=== PATIENT | male | born 1970 ===

== ENCOUNTER 2017-09-27 19:58 | Emergency (ER) | payer OTHER ==
[2017-09-27 20:28] VITALS: BP 158/96; PULSE 93; RESP 16; TEMP 98.2; O2SAT 99
[2017-09-27] MEDS ORDERED: Sodium Chloride 0.9% 1,000 ML IV STA (21:58)
--- NOTE | 2017-09-27 22:02 | ED PDOC ---
HPI: Abdomen Time Seen by Provider: 09/27/17 21:36 Chief Complaint (Nursing): Abdominal Pain Chief Complaint (Provider): abdominal pain History Per: Patient History/Exam Limitations: no limitations Onset/Duration Of Symptoms: Days (2), Waxing/Waning Current Symptoms Are (Timing): Still Present Location Of Pain/Discomfort: LLQ Quality Of Discomfort: Sharp Associated Symptoms: Diarrhea Last Bowel Movement: Today Additional Complaint(s): 47 y/o male presents for evaluation of intermittent left lower abdominal pain x 2 days. Associated diarrhea, tactile fever (last dose of tylenol taken yesterday). Denies fever, nausea/vomiting, chest pain, shortness of breath, palpitatoins, urinary symptoms. Past Medical History Reviewed: Historical Data, Nursing Documentation, Vital Signs Vital Signs: Last Vital Signs Temp 98.2 F 09/27/17 20:25 Pulse 93 H 09/27/17 20:25 Resp 16 09/27/17 20:25 BP 158/96 H 09/27/17 20:25 Pulse Ox 99 09/27/17 22:02 - Medical History PMH: No Chronic Diseases - Surgical History Surgical History: No Surg Hx - Family History Family History: States: No Known Family Hx - Living Arrangements Living Arrangements: With Family - Home Medications Home Medications: Ambulatory Orders Medication Instructions Recorded Dicyclomine [Bentyl] 20 mg PO Q8 PRN #30 tab 06/01/16 Ciprofloxacin HCl [Cipro] 500 mg PO BID #19 tab 09/28/17 Metronidazole [Flagyl] 500 mg PO TID #29 tablet 09/28/17 - Allergies Allergies/Adverse Reactions: Allergies Allergy/AdvReac Type Severity Reaction Status Date / Time No Known Allergies Allergy Verified 06/01/16 12:42 Review of Systems ROS Statement: Except As Marked, All Systems Reviewed And Found Negative Gastrointestinal: Positive for: Abdominal Pain, Diarrhea Physical Exam - Reviewed Nursing Documentation Reviewed: Yes Vital Signs Reviewed: Yes - Physical Exam Appears: Positive for: Well, Non-toxic, No Acute Distress Head Exam: Positive for: ATRAUMATIC, NORMAL INSPECTION, NORMOCEPHALIC Skin: Positive for: Normal Color Eye Exam: Positive for: Normal appearance ENT: Positive for: Normal ENT Inspection Cardiovascular/Chest: Positive for: Regular Rate, Rhythm Respiratory: Positive for: Normal Breath Sounds Gastrointestinal/Abdominal: Positive for: Bowel Sounds, Soft, Tenderness (left lower abdomen) Back: Positive for: Normal Inspection Extremity: Positive for: Normal ROM Neurologic/Psych: Positive for: Alert, Oriented - Laboratory Results Result Diagrams: 09/27/17 22:30 09/27/17 22:30 - ECG O2 Sat by Pulse Oximetry: 99 - Progress ED Course And Treament: labs, urine, CT abd/pelvis, IV toradol EXAM: CT Abdomen and Pelvis With Intravenous Contrast CLINICAL HISTORY: 47 years old, male; Pain; Abdominal pain; Localized; Left lower quadrant (llq); Additional info: Llq pain, diarrhea TECHNIQUE: Axial computed tomography images of the abdomen and pelvis with intravenous contrast. All CT scans at this facility use one or more dose reduction techniques, viz.: automated exposure control; ma/kV adjustment per patient size (including targeted exams where dose is matched to indication; i.e. head); or iterative reconstruction technique. Coronal and sagittal reformatted images were created and reviewed. CONTRAST: 95 mL of [id number] administered intravenously. COMPARISON: No relevant prior studies available. FINDINGS: Lung bases: There is minimal bibasilar atelectasis. ABDOMEN: Liver: Unremarkable. No mass. Gallbladder and bile ducts: Unremarkable. No calcified stones. No ductal dilation. Pancreas: Unremarkable. No mass. No ductal dilation. Spleen: Unremarkable. No splenomegaly. Adrenals: Unremarkable. No mass. Kidneys and ureters: Unremarkable. No solid mass. No hydronephrosis. Stomach and bowel: The sigmoid colon is thickwalled consistent with acute colitis. The ascending colon and transverse colon appear thickwalled secondary to acute colitis or nondistention. Mild diverticulosis is present in the sigmoid and descending colon. PELVIS: Appendix: A normal appendix is identified. Bladder: Unremarkable. No mass. Reproductive: Unremarkable as visualized. ABDOMEN and PELVIS: Intraperitoneal space: Unremarkable. No free air. No significant fluid collection. Bones/joints: Scoliosis and degenerative changes. Soft tissues: There is a nonobstructing left inguinal hernia. Vasculature: Unremarkable. No abdominal aortic aneurysm. Lymph nodes: Unremarkable. No enlarged lymph nodes. IMPRESSION: Acute sigmoid colitis. Thickwalled ascending and transverse colon secondary to nondistention or acute colitis. Clinical correlation recommended. Diverticulosis. Fat-containing left inguinal hernia. Patient educated on findings, discharged with rx cipro, flagyl (doses given in ED) Advised follow up PMD/GI Return precautions given Disposition - Clinical Impression Clinical Impression: Colitis - Patient ED Disposition Is Patient to be Admitted: No Counseled Patient/Family Regarding: Studies Performed, Diagnosis, Need For Followup, Rx Given - Disposition Referrals: [facility] [Outside] Disposition: Routine/Home Disposition Time: 02:45 Condition: IMPROVED Prescriptions: Ciprofloxacin HCl [Cipro] 500 mg PO BID #19 tab Metronidazole [Flagyl] 500 mg PO TID #29 tablet Instructions: Diarrhea in Adolescents and Adults, Acute Abdomen (Belly Pain) Forms: [employer] (Turkish) Print Language: LAO
[2017-09-27 22:45] LABS: URINE BILIRUBIN NEGATIVE (NEGATIVE); URINE BLOOD NEGATIVE (NEGATIVE); URINE CLARITY CLEAR (Clear); URINE COLOR YELLOW (YELLOW); URINE GLUCOSE (UA) NEG (Normal); URINE LEUKOCYTE ESTERASE NEG Leu/uL (Negative); URINE PROTEIN NEGATIVE (NEGATIVE); URINE UROBILINOGEN 0.2-1.0 mg/dL (0.2-1.0)
[2017-09-27 22:48] LABS: BASO % 0.3 % (0.0-2.0); EOS # 0.1 K/uL (0.0-0.7); EOS % 1.8 % (0.0-4.0); HEMOGLOBIN 13.8 g/dL (12.0-18.0); LYMPH # 1.2 K/uL (1.0-4.3); LYMPH % 16.1 % (20.0-40.0); MEAN CELL VOLUME 87.5 fl (80.0-94.0); MEAN CORPUSCULAR HEMOGLOBIN 29.8 pg (27.0-31.0); MEAN PLATELET VOLUME 8.8 fl (7.2-11.7); MONO # 0.8 K/uL (0.0-0.8); MONO % 10.8 % (0.0-10.0); NEUT # 5.4 K/uL (1.8-7.0); RBC 4.62 Mil/uL (4.40-5.90); RED CELL DISTRIBUTION WIDTH 13.8 % (11.5-14.5); WHITE BLOOD COUNT 7.5 K/uL (4.8-10.8)
[2017-09-27 22:53] LABS: ALB/GLOB RATIO 1.2 (1.0-2.1); ALBUMIN 3.9 g/dL (3.5-5.0); ALT/SGPT 34 U/L (21-72); AST/SGOT 27 U/L (17-59); BLOOD UREA NITROGEN 15 mg/dl (9-20); CALCIUM 9.1 mg/dL (8.4-10.2); GFR AFRICAN-AMERICAN > 60; GFR NON-AFRICAN AMERICAN > 60
[2017-09-27] MEDS ORDERED: Iohexol 300 100 ML IJ ONE (23:55)
[2017-09-27] MEDS ORDERED: Sodium Chloride 0.9% 100 ML ONE (23:55)
--- NOTE | 2017-09-28 00:22 | CT ---
EXAM: CT Abdomen and Pelvis With Intravenous Contrast CLINICAL HISTORY: 47 years old, male; Pain; Abdominal pain; Localized; Left lower quadrant (llq); Additional info: Llq pain, diarrhea TECHNIQUE: Axial computed tomography images of the abdomen and pelvis with intravenous contrast. All CT scans at this facility use one or more dose reduction techniques, viz.: automated exposure control; ma/kV adjustment per patient size (including targeted exams where dose is matched to indication; i.e. head); or iterative reconstruction technique. Coronal and sagittal reformatted images were created and reviewed. CONTRAST: 95 mL of [id number] administered intravenously. COMPARISON: No relevant prior studies available. FINDINGS: Lung bases: There is minimal bibasilar atelectasis. ABDOMEN: Liver: Unremarkable. No mass. Gallbladder and bile ducts: Unremarkable. No calcified stones. No ductal dilation. Pancreas: Unremarkable. No mass. No ductal dilation. Spleen: Unremarkable. No splenomegaly. Adrenals: Unremarkable. No mass. Kidneys and ureters: Unremarkable. No solid mass. No hydronephrosis. Stomach and bowel: The sigmoid colon is thickwalled consistent with acute colitis. The ascending colon and transverse colon appear thickwalled secondary to acute colitis or nondistention. Mild diverticulosis is present in the sigmoid and descending colon. PELVIS: Appendix: A normal appendix is identified. Bladder: Unremarkable. No mass. Reproductive: Unremarkable as visualized. ABDOMEN and PELVIS: Intraperitoneal space: Unremarkable. No free air. No significant fluid collection. Bones/joints: Scoliosis and degenerative changes. Soft tissues: There is a nonobstructing left inguinal hernia. Vasculature: Unremarkable. No abdominal aortic aneurysm. Lymph nodes: Unremarkable. No enlarged lymph nodes. IMPRESSION: Acute sigmoid colitis. Thickwalled ascending and transverse colon secondary to nondistention or acute colitis. Clinical correlation recommended. Diverticulosis. Fat-containing left inguinal hernia.
== END 2017-09-28 03:11 | disposition home or self-care (01) ==
LOC: H.ER 19:58
DX: K52.9 Noninfective gastroenteritis and colitis, unspecified (principal); K40.90 Unilateral inguinal hernia, without obstruction or gangrene, not specified as recurrent
CPT/HCPCS: 74177; 80053; 81003; 85025; 96360; 99284; J1885; J7040; Q9967

== ENCOUNTER 2018-05-24 09:41 | Emergency (ER) | payer SELFPAY ==
[2018-05-24 09:53] VITALS: BMI 30.4
[2018-05-24 09:54] VITALS: RESP 20; TEMP 98.5; O2SAT 98
--- NOTE | 2018-05-24 10:57 | ED PDOC ---
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 states for the past 4-5 days he's had a cough productive of green sputum. Also reports having lower abdominal pain present only with coughing. Has been using Mucinex without relief. Of note, pt.'s son and both have the same symptoms. Currently without any abdominal pain. Denies dysuria, frequency, hematuria, fever, chest pain, SOB, hemoptysis, chills, weakness, N/V/D, previous abdominal surgeries, recent travel. Past Medical History Reviewed: Historical Data, Nursing Documentation, Vital Signs Vital Signs: Last Vital Signs Temp 98.5 F 05/24/18 09:53 Pulse 93 H 05/24/18 09:53 Resp 20 05/24/18 09:53 BP 121/79 05/24/18 09:53 Pulse Ox 98 05/24/18 09:53 - Surgical History Surgical History: No Surg Hx - Family History Family History: States: No Known Family Hx - Social History Current smoker - smoking cessation education provided: No Ex-Smoker (has not smoked in the last 12 months): No - Home Medications Home Medications: Ambulatory Orders Medication Instructions Recorded Dicyclomine [Bentyl] 20 mg PO Q8 PRN #30 tab 06/01/16 Ciprofloxacin HCl [Cipro] 500 mg PO BID #19 tab 09/28/17 Metronidazole [Flagyl] 500 mg PO TID #29 tablet 09/28/17 Albuterol HFA [Ventolin HFA 90 2 puff IH [id number] PRN #120 puff 05/24/18 mcg/actuation (8 g)] Azithromycin [Zithromax] 250 mg PO DAILY #6 tab 05/24/18 Promethazine DM [Phenergan DM 5 - 10 ml PO Q8 PRN #120 ml 05/24/18 Syrup] - Allergies Allergies/Adverse Reactions: Allergies Allergy/AdvReac Type Severity Reaction Status Date / Time No Known Allergies Allergy Verified 05/24/18 10:12 Review of Systems ROS Statement: Except As Marked, All Systems Reviewed And Found Negative Respiratory: Positive for: Cough, Sputum Physical Exam - Physical Exam Appears: Positive for: Well, Non-toxic, No Acute Distress Skin: Positive for: Normal Color, Warm. Negative for: Rash Eye Exam: Positive for: Normal appearance ENT: Positive for: Normal ENT Inspection Cardiovascular/Chest: Positive for: Regular Rate, Rhythm Respiratory: Positive for: Normal Breath Sounds. Negative for: Respiratory Distress Gastrointestinal/Abdominal: Positive for: Normal Exam, Bowel Sounds, Soft. 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 informed of plan and care. Advised to f/u with [facility] but if symptoms do not improve or worsen he is to return to ED immediately. Verbalized understanding of plan. Disposition - Clinical Impression Clinical Impression: Acute bronchitis - Patient ED Disposition Is Patient to be Admitted: No - Disposition Referrals: [facility] [Outside] Disposition: Routine/Home Disposition Time: 10:59 Condition: STABLE Additional Instructions: FOLLOW UP WITH PMD FOR FURTHER EVALUATION RETURN TO ED IMMEDIATELY IF SYMPTOMS WORSEN BEN HUNTER, thank you for letting us take care of you today. Your provider was Opal Juarez MD and you were treated for COUGH,HEADACHE. The emergency medical care you received today was directed at your acute symptoms. If you were prescribed any medication, please fill it and take as directed. It may take several days for your symptoms to resolve. Return to the Emergency Department if your symptoms worsen, do not improve, or if you have any other problems. Please contact your doctor or call one of the physicians/clinics you have been referred to that are listed on the Patient Visit Information form that is included in your discharge packet. Bring any paperwork you were given at discharge with you along with any medications you are taking to your follow up visit. Our treatment cannot replace ongoing medical care by a primary care provider outside of the emergency department. [facility] your care today. If you had an X-Ray or CT scan: A Radiologist will review the ED reading if any change in treatment is needed we will contact you. If you had a blood, urine, or wound culture: It will take several days for the results, if any change in treatment is needed we will contact you. If you had an STI test: It will take 48 hours for the results. Please call after 1 week if you have not heard back. Prescriptions: Albuterol HFA [Ventolin HFA 90 mcg/actuation (8 g)] 2 puff IH [id number] PRN #120 puff PRN Reason: Cough Azithromycin [Zithromax] 250 mg PO DAILY #6 tab Promethazine DM [Phenergan DM Syrup] 5 - 10 ml PO Q8 PRN #120 ml PRN Reason: Cough Instructions: Acute Bronchitis, Adult (DC) Forms: [employer] ([place]i) Print Language: YORUBA
[2018-05-24 11:26] VITALS: BP 120/78; PULSE 85
== END 2018-05-24 11:00 | disposition home or self-care (01) ==
LOC: H.ER 09:41
DX: J20.9 Acute bronchitis, unspecified (principal); Z87.891 Personal history of nicotine dependence